=== PATIENT | female | born 1985 | race Caucasian/White ===

== ENCOUNTER 2020-09-30 12:42 | Emergency (ER) | payer BC, OTHER ==
[2020-09-30] MEDS ORDERED: ACETAMINOPHEN 500 MG TAB ONE (14:03)
--- NOTE | 2020-09-30 14:08 | EDPHYS ---
Physician Documentation [facility] Name: Margo Arteaga Age: 35 yrs Sex: Female : 1985 Arrival Date: 09/30/2020 Time: 12:43 Bed 18 Private MD: ED Physician Purnima Ashraf HPI: 09/30 13:29 This 35 yrs old Female presents to ER via Ambulatory with complaints of Hand kb Burn. 13:25 Patient reports she spilled boiling water on her right hand just prior to arrival. kb Second-degree burn to second and third digits, first-degree burn to fourth and fifth digits. Ramos cross the PIP joints. Patient reports unable to move second and third digits. . 13:29 The patient presents with a burn as a result of hot water, while cooking, at home, is kb located on the dorsal aspect of middle phalanx of right index finger, dorsal aspect of proximal phalanx of right index finger, dorsal aspect of middle phalanx of right middle finger, dorsal aspect of proximal phalanx of right middle finger, dorsal aspect of proximal phalanx of right ring finger, dorsal aspect of proximal phalanx of right little finger, palmar aspect of proximal phalanx of right middle finger and palmar aspect of proxima; phalanx of right index finger. Onset: The symptoms/episode began/occurred just prior to arrival. Burn type and severity: 1st degree: 2nd degree:. Associated signs and symptoms: none. The patient did not suffer any apparent inhalation injury, The patient had no loss of consciousness. The patient has not experienced similar symptoms in the past. The patient has not recently seen a physician. 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 - Social history:: Smoking status: Patient denies any tobacco usage or history of. ROS: 13:30 Constitutional: Negative for fever, chills, and weight loss. kb 13:30 Skin: Positive for burn, of the dorsal aspect of middle phalanx of right index finger, dorsal aspect of proximal phalanx of right index finger, dorsal aspect of middle phalanx of right middle finger, dorsal aspect of proximal phalanx of right middle finger, dorsal aspect of proximal phalanx of right ring finger, dorsal aspect of proximal phalanx of right little finger, palmar aspect of proximal phalanx of right middle finger and palmar aspect of proxima; phalanx of right index finger. 13:30 All other systems are negative. Exam: 13:31 Constitutional: This is a well developed, well nourished patient who is awake, alert, kb and in no acute distress. Head/Face: Normocephalic, atraumatic. ENT: Moist Mucous membranes Cardiovascular: Regular rate and rhythm with a normal S1 and S2. No gallops, murmurs, or rubs. No pulse deficits. Respiratory: Respirations even and unlabored. No increased work of breathing, no retractions or nasal flaring. MS/ Extremity: Pulses equal, no cyanosis. Neurovascular intact. Full, normal range of motion. Neuro: Awake and alert, GCS 15, oriented to person, place, time, and situation. Moves all extremities. Normal gait. Psych: Awake, alert, with orientation to person, place and time. Behavior, mood, and affect are within normal limits. 13:31 Abdomen/GI: Inspection: gravid appearance, is noted, pt is 39 weeks . 13:31 Skin: injury, burn(s), second degree ramos to dorsal aspect of second and third digits, nearly circumferential. First-degree ramos to dorsal aspect of fourth and fifth digits. First-degree ramos to palmar aspect of second and third digits. Vital Signs: 13:08 BP 125 / 83; Pulse 108; Resp 20; Temp 97.5(TE); Pulse Ox 100% on R/A; Weight 117.93 kg; kg Height 5 ft. 6 in. (167.64 cm); Pain 8/10; 14:39 BP 121 / 81; Pulse 93; Resp 18; Pulse Ox 97% on R/A; zb 13:08 Body Mass Index 41.96 (117.93 kg, 167.64 cm) kg MDM: 13:17 Patient medically screened. kb 13:28 ED course: Transfer initiated to [facility]. . kb 13:30 Data reviewed: vital signs, nurses notes. Data interpreted: Pulse oximetry: on room air kb is 100 %. Interpretation: normal. 13:59 ED course: Dr Sebastian accepts pt for transfer to [facility]. kb 14:01 Counseling: I had a detailed discussion with the patient and/or guardian regarding: the kb historical points, exam findings, and any diagnostic results supporting the discharge/admit diagnosis, the need to transfer to another facility. ED course: Refuses ambulance transport for transfer. will drive via POV. . 09/30 14:06 Order name: Dressing - Wound; Complete Time: 14:38 kb Administered Medications: 13:42 Drug: Tylenol 1000 mg Route: PO; zb 14:38 Follow up: Response: No adverse reaction; Pain is decreased zb Disposition Summary: 09/30/20 14:08 Transfer Ordered Transfer Location: [facility] Reason: Higher level of care kb Condition: Stable kb Problem: new kb Symptoms: are unchanged kb Accepting Physician: Layla(09/30/20 14:48) zb Diagnosis - Burn of second degree of right hand kb - Burn of first degree of right hand kb Forms: - Medication Reconciliation Form kb - SBAR form kb Addendum: 10/02/2020 17:06 Co-signature as Attending Physician, Purnima Ashraf MD. m a2 Signatures: Dispatcher [employer] EDSenia Richmond, ANNC SHARDA-Purnima Stephens MD MD ma2 Ryanne Kmuar RN RN zb Ronda Mosher RN RN kg Corrections: (The following items were deleted from the chart) 09/30 14:06 13:59 ED course: layla. maisha kb 14:39 14:09 CORONAVIRUS+MR.LAB.BRZ ordered. EDMS EDMS 14:48 14:08 Layla moses
--- NOTE | 2020-09-30 14:08 | ER ---
Nurse's Notes [facility] Name: Margo Arteaga Age: 35 yrs Sex: Female : 1985 Arrival Date: 09/30/2020 Time: 12:43 Bed 18 Private MD: Diagnosis: Burn of second degree of right hand;Burn of first degree of right hand Presentation: 09/30 13:08 Chief complaint: Patient states: Burnt my hand on boiling water at 12:15. Coronavirus kg screen: Client denies travel out of the [place] in the last 14 days. At this time, unable to obtain information related to travel outside the [place] At this time, the client does not indicate any symptoms associated with coronavirus-19. Ebola Screen: Patient negative for fever greater than or equal to 101.5 degrees Fahrenheit, and additional compatible Ebola Virus Disease symptoms Patient denies exposure to infectious person. Patient denies travel to an Ebola-affected area in the 21 days before illness onset. Initial Sepsis Screen: Does the patient meet any 2 criteria? No. Patient's initial sepsis screen is negative. Does the patient have a suspected source of infection? No. Patient's initial sepsis screen is negative. Risk Assessment: Do you want to hurt yourself or someone else? Patient reports no desire to harm self or others. Onset of symptoms was September 30, 2020 at 12:15. 13:08 Method Of Arrival: Ambulatory kg 13:08 Acuity: RASHID 3 kg Triage Assessment: 13:10 General: Appears uncomfortable, Behavior is calm, cooperative, crying. Pain: Complains kg of pain in dorsal aspect of middle phalanx of right index finger and dorsal aspect of proximal phalanx of right index finger Pain currently is 8 out of 10 on a pain scale. at worst was 8 out of 10 on a pain scale. level that patient reports is acceptable is 3 out of 10 on a pain scale. Quality of pain is described as burning, Pain began 1 hour ago. Injury Description: Burn was sustained 30-60 minutes ago. Patient sustained third-degree burn(s) to dorsal aspect of proximal phalanx of right index finger. 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 - Social history:: Smoking status: Patient denies any tobacco usage or history of. Screenin:13 Abuse screen: Denies threats or abuse. Denies injuries from another. Nutritional zb screening: No deficits noted. Tuberculosis screening: No symptoms or risk factors identified. 14:40 Fall Risk None identified. zb Assessment: 14:13 General: Appears uncomfortable, Behavior is calm, cooperative, appropriate for age. zb Pain: Complains of pain in right middle finger, right ring finger and Right index finger Pain currently is 5 out of 10 on a pain scale. Quality of pain is described as aching, dull. Neuro: Level of Consciousness is awake. Cardiovascular: Patient's skin is warm and dry. Respiratory: Airway is patent. Derm: Skin is normal, Wound noted right middle finger and Right index finger 1st to 2nd degree burn on right hand blistering noted. no bleeding at this time. Musculoskeletal:. Injury Description: Burn was sustained 30-60 minutes ago. Patient sustained second-degree burn(s) to right hand. 14:38 Reassessment: damp gauze dressing applied to wound with ice pack. zb Vital Signs: 13:08 BP 125 / 83; Pulse 108; Resp 20; Temp 97.5(TE); Pulse Ox 100% on R/A; Weight 117.93 kg; kg Height 5 ft. 6 in. (167.64 cm); Pain 8/10; 14:39 BP 121 / 81; Pulse 93; Resp 18; Pulse Ox 97% on R/A; zb 13:08 Body Mass Index 41.96 (117.93 kg, 167.64 cm) kg ED Course: 12:43 Patient arrived in ED. ds1 13:10 Triage completed. kg 13:13 Senia Cornejo FNP-C is PHCP. kb 13:13 Purnima Ashraf MD is Attending Physician. kb 13:25 initiated a transfer with Ortiz from the [facility] Transfer Center. eb 13:26 Ryanne Kumar, TEJAS is Primary Nurse. zb 14:01 connected the burn team hospital monitor for [facility] with Senia Deng for patient transfer eb consultation. 14:02 administrative approval given by Renee Crocker/ patient has been accepted to [facility] Bender 8D. report to be called to [phone]. Dr. Sebastian has accepted the patient in transfer. 14:39 Patient has correct armband on for positive identification. Bed in low position. Call zb light in reach. Side rails up X 1. Pulse ox on. NIBP on. 14:39 No provider procedures requiring assistance completed. Patient did not have IV access zb during this emergency room visit. Dressings: Kerlix X 1; right hand. 14:40 Arm band placed on. zb Administered Medications: 13:42 Drug: Tylenol 1000 mg Route: PO; zb 14:38 Follow up: Response: No adverse reaction; Pain is decreased zb Outcome: 14:08 ER care complete, transfer ordered by MD. ferrera 14:48 Transferred private vehicle . to [facility], Transfer form zb completed. 14:48 Condition: stable 14:48 Patient left the ED. zb Signatures: Senia Cornejo, FIELD EDUCATION COORDINATOR-C FIELD EDUCATION COORDINATOR-Ckb Ana Hernandez ds1 Tangela Crouch Zipporah, RN RN Ronda Faust, TEJAS RN kg Corrections: (The following items were deleted from the chart) 14:08 14:02 administrative approval given by Renee Crocker/ patient has been accepted to [facility] Bender 8D. report to be called to [phone]
[2020-09-30 14:57] VITALS: TEMP 97.5
[2020-09-30 14:58] VITALS: BP 121/81; O2SAT 97
== END 2020-09-30 14:48 | disposition short-term general hospital (02) ==
LOC: ER 12:42
DX: T23.201A Burn of second degree of right hand, unspecified site, initial encounter (principal); T31.0 Burns involving less than 10% of body surface; X11.8XXA Contact with other hot tap-water, initial encounter; Y93.G3 Activity, cooking and baking; Y92.000 Kitchen of unspecified non-institutional (private) residence as the place of occurrence of the external cause; Z20.822 Contact with and (suspected) exposure to COVID-19; E03.9 Hypothyroidism, unspecified
CPT/HCPCS: 99285; U0003

== ENCOUNTER 2021-02-17 07:25 | Day surgery (SDC) | payer BC ==
[2021-02-13 10:15] LABS: ALT/SGPT 22 U/L (12-78); AST/SGOT 9 U/L (15-37); Albumin 3.8 g/dL (3.4-5.0); Alkaline Phosphatase 76 U/L (45-117); Amylase 50 U/L (25-115); BUN Blood Urea Nitrogen 11 mg/dL (7-18); Bicarbonate 24 mmol/L (21-32); Bilirubin Direct < 0.1 mg/dL (0-0.2); Bilirubin Total 0.3 mg/dL (0.2-1.0); Glucose Level 99 mg/dL (74-106); Potassium 3.9 mmol/L (3.5-5.1); Protein, Total 7.6 g/dL (6.4-8.2); Sodium Level 140 mmol/L (136-145)
[2021-02-13 10:20] LABS: Absolute Lymphocytes (CBC) 1.1 K/uL (0.7-4.9); Basophils % 0.8 % (0-1.3); Hematocrit 39.3 % (36.0-45.0); RBC Red Blood Cell Count 4.84 M/uL (3.86-4.86)
[2021-02-17] MEDS ORDERED: CEFOXITIN/NS 1gm 0 GM/0 ML BAG ONE (08:08)
[2021-02-17] MEDS ORDERED: Ringers Lactate 1,000 ML IV ONE (08:08)
[2021-02-17 08:18] LABS: Specific Gravity >= 1.030 (1.005-1.030)
[2021-02-17 08:26] VITALS: BP 111/72; TEMP 97.8; O2SAT 98
== END 2021-02-17 11:50 | disposition home or self-care (01) ==
LOC: OR 07:25
PROVIDERS: ATTEND Surgery
DX: K81.1 Chronic cholecystitis (principal); Z53.8 Procedure and treatment not carried out for other reasons; Z20.822 Contact with and (suspected) exposure to COVID-19
CPT/HCPCS: 85025; 80048; 36415; 82150; 81025; 80076; U0002; J7120; J0694

== ENCOUNTER 2021-02-20 07:03 | Day surgery (SDC) | payer BC ==
[2021-02-20] MEDS ORDERED: Ringers Lactate 1,000 ML IV ONE (07:08)
[2021-02-20] MEDS ORDERED: MIDAZOLAM HCL 2 MG/2 ML INJ ONE (08:08)
[2021-02-20] MEDS ORDERED: LIDOCAINE 2% MPF 5 ML VIAL ONE (08:08)
[2021-02-20] MEDS ORDERED: ROCURONIUM 50 MG/5 ML VIAL IV ONE (08:08)
[2021-02-20] MEDS ORDERED: FENTANYL CITR 100 MCG/2 ML ONE (08:08)
[2021-02-20] MEDS ORDERED: propofoL 200 MG/20 ML VIAL IV ONE (08:08)
[2021-02-20] MEDS ORDERED: dexAMETHasone 10 MG/ML VIAL ONE (08:09)
[2021-02-20] MEDS ORDERED: KETOROLAC 30 MG/ML INJ ONE (08:09)
[2021-02-20] MEDS: BUPIVACAINE 0.5% PF 10 ML VIAL ONE ×2 (08:11→09:50)
[2021-02-20] MEDS ORDERED: ONDANSETRON 4 MG/2 ML VIAL ONE ×2 (08:11→11:14)
[2021-02-20] MEDS ORDERED: LABETALOL 20 MG/4ML SYRINGE IV ONE (09:56)
[2021-02-20] MEDS ORDERED: GLYCOPYRROLATE 0.2 MG/ML SYR ONE (10:00)
[2021-02-20] MEDS ORDERED: NEOSTIGMINE 1 MG/ML -5 ML ONE (10:17)
[2021-02-20] MEDS ORDERED: Mastisol Adhesive Liq ONE (10:26)
[2021-02-20] MEDS: FENTANYL CITR 100 MCG/2 ML ONE ×2 (10:59→11:12)
[2021-02-20] MEDS ORDERED: HYDROCODONE/APAP 7.5/325 MG TAB ONE (12:09)
--- NOTE | 2021-02-20 12:59 | OP ---
Date of Procedure: 02/20/2021 Surgeon: Ace Hilliard MD Special Education Paraprofessional: Brant [place], surgical supplies sterilizer. Preoperative Diagnosis: Chronic cholecystitis and cholelithiasis. Postoperative Diagnosis: Chronic cholecystitis and cholelithiasis. Procedure: Repair of laparoscopic cholecystectomy. Estimated Blood Loss: Minimal. Specimen: Gallbladder. Findings: As above. Anesthesia: General. Complications: None. The patient tolerated the procedure well, in stable condition, and taken to Recovery in good general condition. Procedure In Detail: The patient was brought to the OR and placed in supine position. General anest hesia begun. The patient was prepped and draped in the usual sterile fashion. Marcaine 0.5% was inf iltrated locally. A 15-blade was used to make a 1 cm infraumbilical midline incision. Subcutaneous tissue divided. Fascia identified and divided. #1 Vicryl stay suture was placed. Peritoneal cavity entered with sharp and blunt dissection. 12 mm trocar was placed into the peritoneal cavity under d irect vision. Pneumoperitoneum was established. Three 5 trocars placed, 1 in the epigastrium just t o the right of midline and 2 in the right subcostal region. Laparoscopy revealed chronic inflammatio n of the gallbladder. Fundus retracted superiorly. Infundibulum was identified and retracted infero laterally. Cystic duct and cystic artery were clearly identified with blunt dissection. Clips place d. Both structures divided. Cautery used to remove the gallbladder from the liver bed. Bleeding in the liver bed controlled with cautery. Gallbladder was retrieved through the umbilicus via an EndoC atch bag. Right upper quadrant examined. No evidence of bleeding or bile leakage appreciated. Subs equently, all trocars were removed under direct vision. Stay sutures were tied to each other across the fascial defect. Subcutaneous wounds were irrigated. Bleeding controlled with cautery. A 3-0 ch romic was used to approximate the subcutaneous tissue and close the skin. Sterile dressing applied. The patient was awakened and taken to Recovery in good general condition. Discharge Note: The patient will go to Day Surgery and home when stable. Disposition: Home. Condition: Stable. Discharge Instructions: Resume home medications and diet. Activity as tolerated. No heavy lifting. Remove outer dressing in 2 days. Shower. Keep wound clean and dry. Keep Steri-Strips on at all t imes. Follow up in my office in a week. Call for appointment. Tylenol No. 3 one tablet p.o. q.4 p. r.n. pain. Incentive spirometry as ordered. /MEJIA Voice ID: [id number] Report ID: [id number]
[2021-02-20 14:02] VITALS: BP 95/57; TEMP 96.9; O2SAT 99
== END 2021-02-20 12:42 | disposition home or self-care (01) ==
LOC: OR 07:03
PROVIDERS: ATTEND Surgery
PROC: 0FT44ZZ Resection of Gallbladder, Percutaneous Endoscopic Approach (ICD-10-PCS; principal; 2021-02-20 08:30)
DX: K80.10 Calculus of gallbladder with chronic cholecystitis without obstruction (principal)
CPT/HCPCS: 88304; 47562; J2704; J2250; J3010 ×2; J1100; J2710; J7120; J2405 ×2